=== PATIENT | male | born 1945 | race Caucasian/White ===

== ENCOUNTER → 2019-07-30 10:51 | Outpatient (CLI) | payer MEDICARE, SELFPAY ==
--- NOTE | 2019-07-30 | DI.NM.S_ITS ---
PROCEDURE: NM BONE SCAN WHOLE BODY RADIOPHARMACEUTICAL: 22.0 mCi Tc-99m MDP IV. INDICATIONS: Presence of artificial knee joint, bilateral TECHNIQUE: Delayed whole-body scintigrams were obtained approximately 3-4 hours after intravenous injection of radiotracer. Anterior and posterior views were acquired from vertex to feet. Additional left and right oblique views of the bilateral knees were obtained. COMPARISON: [facility] [place], CR, XR KNEE ARTHRITIC SERIES , 07/21/2019, 16:20. 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 There is fairly symmetric mild to moderately increased radioisotope uptake surrounding bilateral femoral and tibial components of prosthesis most likely represent stress related changes. Early loosening cannot be entirely excluded. Symmetric and mild to moderately increased uptake are also seen in bilateral shoulder joints, ankle and hindfoot joints consistent with osteoarthritic changes. IMPRESSION: 1. Symmetric appearing mild to moderately increased uptake surrounding bilateral knee arthroplasty hardware which could represent stress related changes. Early hardware loosening cannot be excluded. 2. Osteoarthritic changes as above. Dictated by: Erik Kay M.D. on 07/30/2019 at 16:59 Approved by: Erik Kay M.D. on 07/30/2019 at 17:04
== END ==
PROVIDERS: PCP Internal Medicine; Visit Provider Orthopaedic Surgery
DX: Z09 Encounter for follow-up examination after completed treatment for conditions other than malignant neoplasm (principal); Z96.653 Presence of artificial knee joint, bilateral
CPT/HCPCS: 78306; A9503